=== PATIENT | male | born 1990 | race Caucasian/White ===

== ENCOUNTER 2017-03-05 23:41 | Emergency (ER) | payer OTHER ==
[2017-03-05 23:53] VITALS: BP 164/80
[2017-03-06] MEDS ORDERED: Tetan/Diph/Pertus SYR(Tdap)* 0.5 ML SYR(BOOSTRIX) use SYR IM ONE (01:42)
--- NOTE | 2017-03-06 01:46 | ED ---
Laceration/Wound HPI - HPI Summary HPI Summary: Patient was pushing the trash down to take it out when his arm was cut by broken glass in the container. He suffered a cut to his left forearm. Bleeding was controlled with direct pressure. He is not sure if his tetanus is up to date. He denies lack of function or N/T in the hand. - History of Current Complaint Stated Complaint: LEFT ARM LAC Time Seen by Provider: 03/06/17 00:05 Hx Obtained From: Patient Mechanism of Injury: Sharp/Blunt Trauma Onset/Duration: Sudden Onset Aggravating: Movement Alleviating: Compression Timing: Constant Onset Severity: Severe Current Severity: Severe Pain Intensity: 8 Associated Signs & Symptoms: Pain Related Hx: Dominant Hand (Right) - Allergy/Home Medications Allergies/Adverse Reactions: Allergies Allergy/AdvReac Type Severity Reaction Status Date / Time Naproxen [From Naprosyn] Allergy Anaphylatic Verified 03/06/17 00:28 Shock Sulfa Antibiotics Allergy Rash Verified 03/06/17 00:28 PMH/Surg Hx/FS Hx/Imm Hx Previously Healthy: Yes Infectious Disease History: No Infectious Disease History: Denies: Traveled Outside the [place] in Last 30 Days - Family History Known Family History: Positive: None - Social History Occupation: Employed Full-time Lives: With Family Alcohol Use: Occasionally Substance Use Type: Reports: Marijuana Smoking Status (MU): Never Smoked Tobacco Review of Systems Positive: Other - 3cm laceration to volar aspect of left forearm Negative: Paresthesia, Numbness All Other Systems Reviewed And Are Negative: Yes Physical Exam Triage Information Reviewed: Yes Vital Signs On Initial Exam: Initial Vitals Temp Pulse Resp BP Pulse Ox 98.7 F 90 18 164/80 100 03/05/17 23:50 03/05/17 23:50 03/05/17 23:50 03/05/17 23:50 03/05/17 23:50 Vital Signs Reviewed: Yes Appearance: Positive: Well-Appearing, Pain Distress, Obese Skin: Positive: Warm, Skin Color Reflects Adequate Perfusion, Dry, Tender - 3 cm laceration to volar aspect of left forearm, Soft Head/Face: Positive: Normal Head/Face Inspection Eyes: Positive: EOMI, JAILENE, Conjunctiva Clear ENT: Positive: Hearing grossly normal Respiratory/Lung Sounds: Positive: Breath Sounds Present Cardiovascular: Positive: RRR Musculoskeletal: Positive: Strength/ROM Intact Neurological: Positive: Sensory/Motor Intact, Alert, Oriented to Person Place, Time, NV Bundle Intact Distally Psychiatric: Positive: Affect/Mood Appropriate AVPU Assessment: Alert - [place] Coma Scale Coma Scale Total: 15 Procedures - Laceration/Wound Repair 1 Location: upper extremity - left forearm Description: Linear Anesthesia: Local, 2.0%, Lido Length, Depth and Shape: 3 cm long, 1 cm wide, 2mm deep Betadine Prep?: No Irrigated w/ Saline (ccs): 300 Laceration/Wound Explored: clean Closure: Single Layer Debridement: minimal Suture Type: Nylon - 4.0 Number of Sutures: 12 Layer Closure?: No Sterile Dressing Applied?: Yes Diagnostics - Vital Signs Vital Signs Temp Pulse Resp BP Pulse Ox 03/06/17 00:22 98.7 F 90 18 164/80 100 03/05/17 23:50 98.7 F 90 18 164/80 100 - Laboratory Lab Statement: Any lab studies that have been ordered have been reviewed, and results considered in the medical decision making process. Laceration Repair Course/Dx - Differential Dx Differental Diagnoses: Abrasion, Avulsion, Cellulitis, Dehiscence, Hematoma, Laceration, Puncture Wound - Clinical Impression Provider Diagnoses: Laceration of left upper arm, Tetanus toxoid inoculation Discharge - Discharge Plan Condition: Stable Disposition: HOME Patient Education Materials: Laceration (ED) Referrals: No Primary Care Phys,NOPCP [Primary Care Provider] - Additional Instructions: Keep your dressing clean, dry and in place for the next 24 hours. You may then remove and shower. Pat dry and cover with a clean, dry band-aid if you are going to be in a "dirty" environment, otherwise it can remain open to air. Do not soak the wound in any body of water until the sutures are removed. Elevate the arm above your heart and use Ibuprofen 600mg three times daily with meals for the next 5-7 days to reduce pain and swelling. Follow-up with your primary care provider or return to the emergency department in 10 days for suture removal. Return to the emergency department sooner if your symptoms worsen.
== END 2017-03-06 01:50 | disposition home or self-care (01) ==
LOC: ED 23:41
DX: S51.812A Laceration without foreign body of left forearm, initial encounter (principal); W25.XXXA Contact with sharp glass, initial encounter; Y92.9 Unspecified place or not applicable; Y93.H9 Activity, other involving exterior property and land maintenance, building and construction; Z88.2 Allergy status to sulfonamides
CPT/HCPCS: 12002; 90471; 90715; 99282